=== PATIENT | female | born 1970 | race Caucasian/White ===

== ENCOUNTER 2021-11-26 06:50 | Day surgery (SDC) | payer BC, MEDICAID ==
[~2021-11-26 06:50] MED LIST: Lactated Ringers 1,000 ML IV SCH; Sodium Chloride 0.9% 10 ML Syringe FLUSH PRN
[2021-11-26] MEDS ORDERED: Propofol 200 MG/20 ML SDV IV ONE (06:51)
== END 2021-11-26 10:35 | disposition home or self-care (01) ==
LOC: FB.SDS 06:50
PROVIDERS: ATTEND Surgery
DX: Z12.11 Encounter for screening for malignant neoplasm of colon (principal); K62.1 Rectal polyp; K63.5 Polyp of colon; F17.210 Nicotine dependence, cigarettes, uncomplicated
CPT/HCPCS: 00812-QZ; 88305; J2704; J7120